=== PATIENT | female | born 1985 | race African-American/Black ===

== ENCOUNTER 2017-06-19 09:02 | Emergency (ER) | payer MEDICAID ==
[~2017-06-19] VITALS: Ht 172.7 cm; Wt 70.0 kg
[~2017-06-19 09:02] MED LIST: IRON; PREDNISONE; glybride
[2017-06-19 09:55] LABS: BASOPHILS % 0.8 % (0.0-2.0); EOSINOPHILS % 0.5 % (0.0-5.0); HEMATOCRIT. 31.7 % (36.0-48.0); HEMOGLOBIN. 9.8 g/dL (12.0-16.0); LYMPHOCYTES % 26.3 % (20.0-50.0); MEAN CORPUSCULAR HEMOGLOBIN 23.7 pg (28.0-32.0); MEAN CORPUSCULAR VOLUME 76.6 fL (81.0-99.0); MEAN PLATELET VOLUME 9.1 fl (7.4-10.4); MONOCYTES % 5.1 % (2.0-8.0); NEUTROPHILS % 67.3 % (40.0-76.0); PLATELET 318 x1000/uL (130-400); RED BLOOD CELL COUNT 4.14 mill/uL (4.2-5.4); RED CELL DISTRIBUTION WIDTH 19.2 % (11.6-14.6)
[2017-06-19 10:11] LABS: CLARITY URINE CLEAR (CLEAR); COLOR URINE YELLOW (YELLOW); GLUCOSE URINE NEGATIVE (NEGATIVE); KETONES URINE NEGATIVE (NEGATIVE); LEUKOCYTE ESTERASE URINE 2+ (NEGATIVE); NITRITE URINE POSITIVE (NEGATIVE); OCCULT BLOOD URINE 2+ (NEGATIVE); PROTEIN URINE NEGATIVE (NEGATIVE); SPECIFIC GRAVITY URINE 1.018 (1.005-1.030); UROBILINOGEN URINE 0.2 E.U./dL (0.2-1.0)
[2017-06-19 10:20] LABS: CARBON DIOXIDE 25 mEq/L (21-32); CHLORIDE 107 mEq/L (98-107)
[2017-06-19 10:30] LABS: B-HCG QUANTITATIVE 5519 mIU/mL (<3)
[2017-06-19] MEDS ORDERED: NITROFURANTOIN 100MG M/M CAPSULE PO ONE (11:15)
[2017-06-19 12:47] VITALS: BP 119/75
== END 2017-06-19 13:45 | disposition home or self-care (01) ==
LOC: ER 09:02
DX: O20.0 Threatened abortion (principal); O23.41 Unspecified infection of urinary tract in pregnancy, first trimester; O99.611 Diseases of the digestive system complicating pregnancy, first trimester; Z88.5 Allergy status to narcotic agent; Z3A.01 Less than 8 weeks gestation of pregnancy
CPT/HCPCS: 36415; 76801; 76817; 80048; 81001; 81025; 84702; 85025; 86850; 86900; 86901; 87077; 87086; 87186; 99285; Z7610

== ENCOUNTER 2018-10-02 21:35 | Emergency (ER) | payer MEDICAID | END 2018-10-03 02:04 | disposition left against medical advice (07) | LOC: ER 21:35 | DX: Z53.21 Procedure and treatment not carried out due to patient leaving prior to being seen by health care provider (principal) ==

== ENCOUNTER 2019-09-15 11:08 | Emergency (ER) | payer MEDICAID ==
[~2019-09-15] VITALS: Ht 170.2 cm; Wt 189.0 kg
[2019-09-15] MEDS: KETOROLAC 30MG/ML VIAL IM ONE (12:46)
[2019-09-15 12:59] LABS: HCG SCREEN NEGATIVE
[2019-09-15 13:40] VITALS: BP 151/97
== END 2019-09-15 14:39 | disposition home or self-care (01) ==
LOC: ER 11:08
DX: M25.562 Pain in left knee (principal); R03.0 Elevated blood-pressure reading, without diagnosis of hypertension
CPT/HCPCS: 29505; 73560; 81025; 84703; 96372; 99284; J1885

== ENCOUNTER 2020-01-17 08:28 | Inpatient (IN) | payer MEDICAID ==
[~2020-01-17] VITALS: Ht 170.2 cm; Wt 90.7 kg
[2020-01-17] MEDS ORDERED: ONDANSETRON HCL 4MG/2ML INJ IV STA (09:05)
[2020-01-17] MEDS ORDERED: HYDROCODONE/ACETAMINOPHEN 5/325MG TABLET PO ONE (09:15)
[2020-01-17 10:08] LABS: BASOPHILS % 0.4 % (0.0-2.0); EOSINOPHILS % 0.6 % (0.0-5.0); HEMOGLOBIN. 13.9 g/dL (12.0-16.0); LYMPHOCYTES % 10.4 % (20.0-50.0); MEAN CORPUSCULAR HEMOGLOBIN 24.1 pg (28.0-32.0); MEAN CORPUSCULAR VOLUME 77.9 fL (81.0-99.0); MEAN PLATELET VOLUME 9.1 fl (7.4-10.4); NEUTROPHILS % 85.6 % (40.0-76.0); PLATELET 244 x1000/uL (130-400); RED BLOOD CELL COUNT 5.77 mill/uL (4.2-5.4); RED CELL DISTRIBUTION WIDTH 21.2 % (11.6-14.6)
[2020-01-17 10:11] LABS: CHLORIDE 105 mEq/L (98-107)
[2020-01-17 10:12] LABS: INR 0.9
[2020-01-17] MEDS ORDERED: IOHEXOL-300 100 ML BOTTLE ONE (11:17)
[2020-01-17] MEDS ORDERED: CEFTRIAXONE 1 G PREMIX 50 ML IV ONE (11:30)
[2020-01-17] MEDS ORDERED: SODIUM CHLORIDE 0.9% 1,000 ML IV ONE (11:30)
[2020-01-17] MEDS ORDERED: METRONIDAZOLE 500 MG PREMIX 100 ML IV ONE (11:30)
[2020-01-17 14:00] VITALS: BP 117/80
[2020-01-17 14:05] VITALS: BP 117/80
[2020-01-17] MEDS ORDERED: MORPHINE SULFATE 2 MG/ML CPJ (NOT FOR IM USE) IV PRN (15:15)
[2020-01-17] MEDS: ONDANSETRON HCL 4MG/2ML INJ IV PRN ×2 (15:24→22:21)
[2020-01-17] MEDS ORDERED: DIPHENHYDRAMINE 50MG/ML VIAL IV PRN (15:45)
[2020-01-17 16:00] VITALS: BP 118/76
[2020-01-17] MEDS ORDERED: CLONIDINE 0.1MG TABLET PO PRN (17:15)
[2020-01-17] MEDS: NICOTINE 14MG PATCH TD SCH (17:59)
[2020-01-17] MEDS: HYDROMORPHONE HCL/PF 2MG/ML CPJ IV PRN ×2 (18:00→22:21)
[2020-01-17 20:00] VITALS: BP 137/89
[2020-01-17] MEDS ORDERED: LACTATED RINGERS 1,000 ML IV SCH (20:00)
[2020-01-18] VITALS: BP 102/58
[2020-01-18] MEDS: HYDROMORPHONE HCL/PF 2MG/ML CPJ IV PRN ×3 (02:41→11:00)
[2020-01-18 04:00] VITALS: BP 115/70
[2020-01-18 07:36] LABS: CHLORIDE 106 mEq/L (98-107)
[2020-01-18 07:38] LABS: BASOPHILS % 0.2 % (0.0-2.0); EOSINOPHILS % 0.5 % (0.0-5.0); HEMATOCRIT. 37.4 % (36.0-48.0); HEMOGLOBIN. 11.8 g/dL (12.0-16.0); LYMPHOCYTES % 9.1 % (20.0-50.0); MEAN CORPUSCULAR HEMOGLOBIN 24.5 pg (28.0-32.0); MEAN CORPUSCULAR VOLUME 77.4 fL (81.0-99.0); MEAN PLATELET VOLUME 9.2 fl (7.4-10.4); MONOCYTES % 4.6 % (2.0-8.0); NEUTROPHILS % 85.6 % (40.0-76.0); PLATELET 206 x1000/uL (130-400); RED BLOOD CELL COUNT 4.83 mill/uL (4.2-5.4)
[2020-01-18 07:42] LABS: TOTAL IRON BINDING CAPACITY 312 ug/dL (250-450)
[2020-01-18 07:58] LABS: FOLIC ACID (FOLATE) SERUM 5.7 ng/mL (>5.38)
[2020-01-18 08:00] VITALS: BP 117/56
[2020-01-18] MEDS: NICOTINE 14MG PATCH TD SCH (08:20)
[2020-01-18 08:42] LABS: HCG SCREEN NEGATIVE
[2020-01-18] MEDS ORDERED: MESALAMINE 400 MG CAPSULE.DR PO SCH (11:30)
[2020-01-18 12:00] VITALS: BP 108/67
[2020-01-18] MEDS ORDERED: IRON SUCROSE COMPLEX 100 MG/5 ML ML IV SCH (13:00)
[2020-01-18] MEDS ORDERED: METHYLPREDNISOLONE SOD SUCC 125 MG/2 ML VIAL IV SCH (14:00)
[2020-01-18 16:00] VITALS: BP 119/69
== END 2020-01-18 16:38 | disposition left against medical advice (07) | DRG 245 ==
LOC: ER 08:28 → 6EST 12:26 → EDBEDREQ 12:30 → EDBEDREQTM 12:30 → ENRESERV 12:35
PROVIDERS: ADMIT Internal Medicine; ATTEND Internal Medicine
DX: K50.912 Crohn's disease, unspecified, with intestinal obstruction (principal); D72.0 Genetic anomalies of leukocytes; E61.1 Iron deficiency; Z53.29 Procedure and treatment not carried out because of patient's decision for other reasons; F17.210 Nicotine dependence, cigarettes, uncomplicated; R74.0 Nonspecific elevation of levels of transaminase and lactic acid dehydrogenase [LDH]; K52.9 Noninfective gastroenteritis and colitis, unspecified; Z88.5 Allergy status to narcotic agent
CPT/HCPCS: 36415; 71045; 74177; 80048; 80053; 82270; 82607; 82728; 82746; 83540; 83550; 84703; 85025; 85651; 86256; 86671; 87015; 87045; 87427; 87449; 87493; 89055; 93005; 96365; 99285; J0696; J1170; J1200; J2270; J2405; J2930; J3490; J7120; Q9967